=== PATIENT | female | born 2000 | race Two or more races ===

== ENCOUNTER 2020-05-10 22:56 | Inpatient (IN) | payer OTHER ==
[~2020-05-10] VITALS: Ht 154.9 cm; Wt 78.0 kg
[2020-05-11] MEDS ORDERED: PRENATAL TABLE1 EAC1 PO (05:18)
== END 2020-05-13 10:54 | DRG 807 ==
LOC: OBS/DEL 22:56 → OB/GYN 05-11 04:55 → LDR 05-11 04:55 → OB/GYN 05-11 12:55
PROVIDERS: ADMIT Obstetrics & Gynecology; ATTEND Obstetrics & Gynecology
PROC: 10E0XZZ Delivery of Products of Conception, External Approach (ICD-10-PCS; principal; 2020-05-11)
PROC: 0HQ9XZZ Repair Perineum Skin, External Approach (ICD-10-PCS; 2020-05-11)
PROC: 4A0HXFZ Measurement of Products of Conception, Cardiac Rhythm, External Approach (ICD-10-PCS; 2020-05-11)
DX: O70.0 First degree perineal laceration during delivery (principal); Z37.0 Single live birth; Z3A.40 40 weeks gestation of pregnancy